=== PATIENT | female | born 1975 | race Caucasian/White ===

== ENCOUNTER 2023-02-04 13:56 | Outpatient (CLI) | payer BC, SELFPAY ==
[2023-02-04 14:41] LABS: Hematocrit 42.6 % (37.0-47.0); Hemoglobin 14.6 g/dL (12.0-15.0); Mean Corpuscular HGB Conc 34.3 g/dl (32-36); Mean Corpuscular Hemoglobin 29.2 pg (26-34); Mean Corpuscular Volume 85.2 fl (80-100); Mean Platelet Volume 12.2 fl (7.4-10.4); Platelet Count Result 251 k/mm3 (150-375); Red Cell Distribution Width 12.8 % (11.5-14.5); White Blood Count 9.7 K/mm3 (4.5-10.0)
[2023-02-04 15:00] LABS: Alanine Aminotransferase 43 U/L (6-35); Albumin Level 4.5 g/dL (3.5-5.1); Alkaline Phosphatase 84 U/L (38-126); Amylase 111 U/L (30-110); Anion Gap 11 mmol/L (8-16); Aspartate Amino Transferase 36 U/L (14-36); Bilirubin,Total 0.5 mg/dL (0.2-1.3); Blood Urea Nitrogen 12 mg/dL (7-17); CRP 0.6 mg/dL (<1.0); Calcium 9.1 mg/dL (8.4-10.2); Carbon Dioxide 23 mmol/L (22-30); Chloride 102 mmol/L (98-107); Estimated Glomerular Filt Rate > 60; Glucose 117 mg/dL (65-110); Lipase 102 U/L (23-300); Potassium 3.7 mmol/L (3.4-5.0); Sodium 136 mmol/L (137-145)
[2023-02-04 15:06] LABS: Erythrocyte Sedimentation Rate 15 mm/hr (0-20)
== END 2023-02-04 13:57 | disposition home or self-care (01) ==
LOC: ANHLAB 13:57
PROVIDERS: PCP Nurse Practitioner Family; Visit Provider Nurse Practitioner
DX: F45.8 Other somatoform disorders (principal); K21.9 Gastro-esophageal reflux disease without esophagitis; M89.8X1 Other specified disorders of bone, shoulder; Z87.19 Personal history of other diseases of the digestive system
CPT/HCPCS: 36415; 80053; 82150; 83690; 84443; 85027; 85652; 86140

== ENCOUNTER 2023-02-20 14:45 | Outpatient (CLI) | payer BC, SELFPAY ==
--- NOTE | ~2023-02-20 | CT_ITS ---
CT of the Abdomen and Pelvis: Indication: Bloating, diarrhea Technique: 2.5 mm axial scans were obtained through the abdomen and pelvis following intravenous adm inistration of 100 cc of Omnipaque 350. Dose reduction technique was used on this scan by utilizing a utomated exposure control and iterative reconstruction technique. The dose-length product (DLP) was 5 25.14 mGy-cm. Findings: Scans through the lung bases are unremarkable. The liver, spleen, pancreas, gallbladder, adrenals and kidneys are within normal limits. No evidence of aortic aneurysm. No lymphadenopathy. No bowel obstruction or bowel wall thickening. There is no evidence to suggest acute appendicitis. Images through the pelvis were performed. Urinary bladder unremarkable. No adnexal mass. No ascites. Impression: No significant abnormalities seen. Reviewed, dictated and finalized at [facility]. Impression: No significant abnormalities seen.
== END 2023-02-20 14:46 | disposition home or self-care (01) ==
PROVIDERS: PCP Physician Assistant Medical; Visit Provider Nurse Practitioner
DX: M89.8X1 Other specified disorders of bone, shoulder (principal); R10.13 Epigastric pain; R14.0 Abdominal distension (gaseous); R19.7 Diarrhea, unspecified; R74.01 Elevation of levels of liver transaminase levels; R74.8 Abnormal levels of other serum enzymes
CPT/HCPCS: 74177; Q9967

== ENCOUNTER 2023-04-01 01:08 | Day surgery (SDC) | payer BC, SELFPAY ==
[2023-03-19 14:34] VITALS: BMI 31.2
[2023-04-01 08:40] VITALS: BP 148/97; PULSE 89; RESP 18; TEMP 36.6; O2SAT 100
[2023-04-01] MEDS: LACTATED RINGERS 1,000 ML 150 ML IV CONT (08:57)
--- NOTE | 2023-04-01 09:17 | WPDANESEPPF ---
Anes - Initial Pre Proc Eval Procedure: Operation Date: 04/01/23 09:45 Proposed Procedures p Esophagogastroduodenoscopy & Colonoscopy - Tomas Gallardo MD Date/Time: 04/01/23 09:17 Surgeon: Tomas Gallardo MD Pre Op Diagnosis: GERD, Abdominal Distension Patient Data Age: 47 Gender: F Height: 1.57 m Weight: 77.2 kg Last Vital Signs Temp 36.6 C 04/01/23 08:40 Pulse 89 04/01/23 08:40 Resp 18 04/01/23 08:40 BP 148/97 H 04/01/23 08:40 Pulse Ox 100 04/01/23 08:40 O2 Del Method Room Air 04/01/23 08:40 Allergies Allergy/AdvReac Type Severity Reaction Status Date / Time No Known Allergies Allergy Verified 04/01/23 08:34 Home Medications Medication Instructions Recorded Confirmed Type omeprazole 40 mg capsule,delayed 40 mg PO BID 1 month #60 caps 02/10/23 03/19/23 Rx release albuterol sulfate 90 mcg/actuation 1 puff inhalation Q4H PRN 02/20/23 03/19/23 History aerosol inhaler Shortness Of Breath cetirizine 10 mg capsule (Zyrtec) 10 mg PO DAILY PRN Allergy Symptoms 02/20/23 03/19/23 History sodium,potassium,mag sulfates 17.5 See Rx Instructions PO .COMPLEX 03/05/23 Rx gram-3.13 gram-1.6 gram oral soln #354 mL (Suprep Bowel Prep Kit) sucralfate 1 gram tablet See Rx Instructions .Route 03/12/23 03/19/23 Rx .COMPLEX #120 tabs Patient hx anesthesia problems: none Family hx anesthesia problems: none Results Review: All pre-operative results and documents have been reviewed as part of the pre-operative evaluation. [facility] Past Medical History Medical History Abdominal bloating Chronic throat clearing Diarrhea Elevated ALT measurement Elevated amylase Epigastric pain GERD (gastroesophageal reflux disease) Globus abdominalis History of esophageal stricture History of multiple miscarriages Pain of right scapula Seasonal allergies Surgical History Surgical History History of dilatation and curettage 2009 and 2014 [place] teeth removed Family History Family History Mother Heart disease Father Heart disease Son Asthma Other Lung cancer Maternal Aunt Grandparent Cerebrovascular accident Social History Social History Smoking status: Former smoker Tobacco type: cigarettes Alcohol intake: current Alcohol use details: occasional Substance use: never Substance use type: does not use Lack of Transportation: No Lack of Food: Never True Current Housing: I Have Housing Concerned About Future Housing: No Difficulty Paying Gas/Electric Bills: No Difficulty Paying for Meds: No Currently Unemployed: No Education: Bachelor's Degree Difficulty w/ Childcare or Family Care: No Living arrangements: with family Occupation/Education: occupation 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 Gender identity (if verbalized by the patient): Female Sexual Orientation (if Verbalized by the Patient): Straight or Heterosexual Spiritual care concerns: No Agree to blood products: Yes Anes - Eval Final PreProcedure Day of Procedure 04/01/23 09:17 Patient weight: overweight Heart: regular rate and rhythm Lungs: clear to auscultation Airway: Mallampati scale class II Neurological: alert and oriented Last oral intake: >/= 8 hours ASA classification: II Emergent: no Anesthetic plan: proceed Anesthesia type and monitoring: general GIVS and standard monitoring Results Review: All pre-operative results and documents have been reviewed as part of the pre-operative evaluation. Informed Consent: The patient's anesthetic plan and its attendant risks and benefits were discussed with the patient/family/POA. Questions were solicited and answers provided to the satisfaction of the
--- NOTE | 2023-04-01 09:20 | PM.HPGS ---
History of Present Illness History of Present Illness Consent: Risks, benefits, and alternatives have been discussed and questions answered. Patient agrees to proceed with procedure. Chief complaint: GERD, Abdominal Distension Narrative: Mecca De La Fuente is a 47 year old female Presents for both colonoscopy and EGD. Patient complains of intermittent lump in her throat. She reports several years ago having had an EGD in [facility] that showed a distal esophageal stricture that required dilatation. She recently has had regurgitation with tasting food in her mouth. She has no heartburn. Dose of omeprazole was increased to20mg p.o. b.i.d. with resolution of these symptoms. She continues to have an intermittent lump in her throat however. She does complain of a rather vague abdominal bloating. Recent Cologuard test was negative. Patient referred for colonoscopy to evaluate the bloating. She is referred for an EGD because of the globus sensation. She also has a history stricture ring. Family history noncontributory. Patient denies any weight loss or bleeding. Review of Systems Review of Systems: Review of systems noncontributory. [facility] Past Medical History Medical History Abdominal bloating Chronic throat clearing Diarrhea Elevated ALT measurement Elevated amylase Epigastric pain GERD (gastroesophageal reflux disease) Globus abdominalis History of esophageal stricture History of multiple miscarriages Pain of right scapula Seasonal allergies Surgical History Surgical History History of dilatation and curettage 2009 and 2014 [place] teeth removed Family History Family History Mother Heart disease Father Heart disease Son Asthma Other Lung cancer Maternal Aunt Grandparent Cerebrovascular accident Social History Social History Smoking status: Former smoker Tobacco type: cigarettes Alcohol intake: current Alcohol use details: occasional Substance use: never Substance use type: does not use Lack of Transportation: No Lack of Food: Never True Current Housing: I Have Housing Concerned About Future Housing: No Difficulty Paying Gas/Electric Bills: No Difficulty Paying for Meds: No Currently Unemployed: No Education: Bachelor's Degree Difficulty w/ Childcare or Family Care: No Living arrangements: with family Occupation/Education: occupation 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 Gender identity (if verbalized by the patient): Female Sexual Orientation (if Verbalized by the Patient): Straight or Heterosexual Spiritual care concerns: No Agree to blood products: Yes Meds Home Medications and Allergies Home Medications Medication Instructions Recorded Confirmed Type omeprazole 40 mg capsule,delayed 40 mg PO BID 1 month #60 caps 02/10/23 03/19/23 Rx release albuterol sulfate 90 mcg/actuation 1 puff inhalation Q4H PRN 02/20/23 03/19/23 History aerosol inhaler Shortness Of Breath cetirizine 10 mg capsule (Zyrtec) 10 mg PO DAILY PRN Allergy Symptoms 02/20/23 03/19/23 History sodium,potassium,mag sulfates 17.5 See Rx Instructions PO .COMPLEX 03/05/23 Rx gram-3.13 gram-1.6 gram oral soln #354 mL (Suprep Bowel Prep Kit) sucralfate 1 gram tablet See Rx Instructions .Route 03/12/23 03/19/23 Rx .COMPLEX #120 tabs Allergies Allergy/AdvReac Type Severity Reaction Status Date / Time No Known Allergies Allergy Verified 04/01/23 08:34 Vital Signs Vital Signs - 24 hr 04/01/23 08:40 Temperature 97.9 F Pulse Rate 89 Respiratory Rate 18 Blood Pressure 148/97 H Pulse Oximetry 100 Oxygen Delivery Room Air Exam Narrative: Physical exam reveals patient t
--- NOTE | 2023-04-01 10:16 | SUR.OPER ---
EGD: Start 10:08, End 10:11 Colon: Start 10:16, End 10:28
[2023-04-01 10:31] VITALS: BP 137/89; PULSE 95; RESP 20; O2SAT 99
[2023-04-01 10:41] VITALS: BP 132/85; PULSE 94; RESP 18; O2SAT 100
[2023-04-01 10:51] VITALS: BP 118/82; PULSE 87; RESP 15; O2SAT 98
== END 2023-04-01 11:07 | disposition home or self-care (01) ==
PROVIDERS: PCP Physician Assistant Medical; Visit Provider Internal Medicine Gastroenterology
PROC: 0DJ08ZZ Inspection of Upper Intestinal Tract, Via Natural or Artificial Opening Endoscopic (ICD-10-PCS; CPT 43235; principal; 2023-04-01 09:45)
DX: R14.0 Abdominal distension (gaseous) (principal); K64.8 Other hemorrhoids; K21.9 Gastro-esophageal reflux disease without esophagitis; Z79.51 Long term (current) use of inhaled steroids; Z87.891 Personal history of nicotine dependence
CPT/HCPCS: 45378; 43239; 87081; J2704; J7120